=== PATIENT | female | born 1985 ===

== ENCOUNTER 2018-05-10 23:19 | Emergency (ER) | payer SELFPAY ==
[2018-05-10 23:20] VITALS: BP 124/73
[2018-05-10] MEDS ORDERED: DIPHTH/TETANUS/ACEL. PERTUSSIS IM ONLY ONE (23:25)
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
[2018-05-11 00:15] LABS: PLATELET COUNT, AUTOMATED 203 K/uL (150-450)
[2018-05-11] MEDS ORDERED: hydrOXYzine PAMOATE 25 MG CAP PO ONE (00:50)
[2018-05-11] MEDS ORDERED: OLANZapine ZYDIS ODT 5MG TABDP PO ONE (00:50)
[2018-05-11] MEDS ORDERED: LORazepam 1 MG TAB PO ONE (00:50)
[2018-05-12] MEDS ORDERED: SULF-198 PO (11:00)
[2018-05-12] MEDS ORDERED: NEOM1PAC11 TP (11:02)
== END 2018-05-11 01:24 ==
LOC: ER 23:22
DX: F32.9 Major depressive disorder, single episode, unspecified (principal); F10.920 Alcohol use, unspecified with intoxication, uncomplicated; F15.129 Other stimulant abuse with intoxication, unspecified; F12.10 Cannabis abuse, uncomplicated; F11.10 Opioid abuse, uncomplicated
CPT/HCPCS: 80305; 80320; 80329; 81001; 81025; 83735; 84443; 85025; 90471; 90715; 99283; Q0177; 82040; 82247; 82310; 82374; 82435; 82565; 82947; 84075; 84132; 84155; 84295; 84450; 84460; 84520

== ENCOUNTER 2018-05-11 00:48 | Inpatient (IN) | payer SELFPAY ==
[2018-05-11 01:35] VITALS: BP 128/72
[2018-05-11] MEDS ORDERED: MAG HYD/AL HYD/SIMETH 30ML UDC PO PRN ×3 (02:05→10:05)
[2018-05-11] MEDS ORDERED: ACETAMINOPHEN 325 MG TAB PO PRN (02:05)
[2018-05-11] MEDS: LORazepam 1 MG TAB PO PRN ×2 (02:17→20:46)
[2018-05-11 06:15] VITALS: BP 132/70
[2018-05-11] MEDS: MULTIVITAMINS TAB PO SCH (09:00)
[2018-05-11] MEDS ORDERED: FOLIC ACID 1 MG TAB PO SCH (09:00)
[2018-05-11] MEDS: FOLIC ACID 1 MG TAB PO SCH (10:25)
[2018-05-11] MEDS: TRIMETH/SULFA DS 160-800MG TAB PO SCH ×2 (10:25→20:45)
[2018-05-11] MEDS: THIAMINE HCL 100 MG TAB PO SCH (10:25)
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
[2018-05-11] MEDS ORDERED: NEOMYCIN/POLYMYX/BACITR 30 GM TP PRN (14:45)
[2018-05-11 15:00] VITALS: BP 108/58
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
[2018-05-12] MEDS ORDERED: TRIMETH/SULFA DS 160-800MG TAB PO SCH
[2018-05-12 07:06] VITALS: BP 95/47
[2018-05-12] MEDS: THIAMINE HCL 100 MG TAB PO SCH (09:52)
[2018-05-12] MEDS: MULTIVITAMINS TAB PO SCH (09:52)
[2018-05-12] MEDS: FOLIC ACID 1 MG TAB PO SCH (09:52)
[2018-05-12] MEDS: TRIMETH/SULFA DS 160-800MG TAB PO SCH (09:52)
[2018-05-12] MEDS ORDERED: SULF-198 PO (11:00)
[2018-05-12] MEDS ORDERED: NEOM1PAC11 TP (11:02)
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
== END 2018-05-12 11:25 | disposition home or self-care (01) | DRG 882 ==
LOC: BHS 00:48
PROVIDERS: ADMIT Psychiatry & Neurology Psychiatry; ATTEND Psychiatry & Neurology Psychiatry
DX: F43.23 Adjustment disorder with mixed anxiety and depressed mood (principal); R45.851 Suicidal ideations; S21.119A Laceration without foreign body of unspecified front wall of thorax without penetration into thoracic cavity, initial encounter; S41.112A Laceration without foreign body of left upper arm, initial encounter; F12.920 Cannabis use, unspecified with intoxication, uncomplicated; F15.920 Other stimulant use, unspecified with intoxication, uncomplicated; F10.120 Alcohol abuse with intoxication, uncomplicated; Y90.6 Blood alcohol level of 120-199 mg/100 ml; Z59.0 Homelessness; X78.9XXA Intentional self-harm by unspecified sharp object, initial encounter